=== PATIENT | male | born 1970 | race Hispanic/Latino ===

== ENCOUNTER 2019-07-05 18:55 | Emergency (ER) | payer SELFPAY ==
[2019-07-05] MEDS ORDERED: MORPHINE 4 MG/1 ML INJ IM ONE (20:13)
--- NOTE | 2019-07-05 20:13 | Emergency Department Report ---
HPI - General Chief Complaint: Fall Time Seen by Provider: 07/05/19 20:01 - HPI HPI: 49-year-old male presents to the emergency department via EMS from [place], where the patient is being treated for alcohol dependence, with complaint of chest wall pain and hematoma after slipping while getting out of the shower. He says that the toilets are located just across from the shower and it was wet and he slipped and fell forward with his chest hitting directly on the back of the toilet. He denies hitting his head or any loss of consciousness. Patient also has a past medical history of hypertension, peripheral neuropathy and nicotine dependence. He was given some ibuprofen for his symptoms prior to presentation without much relief. ED Past Medical Hx - Past Medical History Previous Medical History?: Yes Hx Hypertension: Yes Additional medical history: ETOH abuse - Surgical History Past Surgical History?: No - Social History Smoking Status: Unknown if ever smoked ED Review of Systems ROS: Stated complaint: CHEST CONTUSION Other details as noted in HPI Comment: All other systems reviewed and negative Constitutional: denies: chills, fever Eyes: denies: eye pain, vision change ENT: denies: ear pain, throat pain Respiratory: denies: cough, shortness of breath Cardiovascular: chest pain. denies: palpitations Gastrointestinal: denies: abdominal pain, vomiting Genitourinary: denies: dysuria, discharge Musculoskeletal: denies: back pain, arthralgia Skin: change in color (redness and ecchymoses to the superior chest wall). denies: rash Physical Exam - Physical Exam Vital Signs: Vital Signs 07/05/19 19:37 Temperature 98.3 F Pulse Rate 69 Respiratory 18 Rate Blood Pressure 150/90 O2 Sat by Pulse 95 Oximetry Physical Exam: GENERAL: The patient is well-developed well-nourished. HENT: Normocephalic. Atraumatic. Patient has moist mucous membranes. EYES: Extraocular motions are intact. NECK: Supple. Trachea is midline. CHEST/LUNGS: Clear to auscultation. There is no respiratory distress noted. There is some non-expanding swelling with erythema and ecchymosis to the upper midsternal chest wall. There is tenderness to palpation over this region. No crepitus. HEART/CARDIOVASCULAR: Regular. There is no tachycardia. There is no murmur. ABDOMEN: Abdomen is soft, nontender. Patient has normal bowel sounds. There is no abdominal distention. SKIN: Skin is warm and dry. There is some non-expanding swelling with erythema and ecchymosis to the upper midsternal chest wall. NEURO: The patient is awake, alert, and oriented. The patient is cooperative. The patient has no focal neurologic deficits. Normal speech. MUSCULOSKELETAL: There is no tenderness or deformity. ED Course Vital Signs 07/05/19 19:37 Temperature 98.3 F Pulse Rate 69 Respiratory 18 Rate Blood Pressure 150/90 O2 Sat by Pulse 95 Oximetry ED Medical Decision Making - Lab Data Result diagrams: 07/05/19 20:10 07/05/19 20:10 - Radiology Data Radiology results: report reviewed, image reviewed interpreted by me: Chest x-ray does not show any acute process. There are no pleural effusions, obvious pneumonia and there is no pneumothorax. CT chest w con INDICATION / CLINICAL INFORMATION: MAIN: Fall, Chest injury 100CC OF OMNIPAQUE 300 BOLUS GIVEN . TECHNIQUE: Axial CT imaging of chest was obtained with IV contrast. Coronal and sagittal reformatted imaging obtained and reviewed. All CT scans at this location are performed using CT dose reduction for ALARA by means of automated exposure control. COMPARISON: Chest radiograph 07/05/2019 FINDINGS: CT chest with contrast demonstrates normal appearance of the mediastinum. No evidence for mediastinal hematoma. Thoracic aorta is intact. No mediastinal or hilar adenopathy. Heart size is normal. No pericardial effusion. Both lungs are well-expanded and are clear. No evidence of pulmonary mass, parenchymal disease, or pleural effusion. Visualized portions of the upper abdomen do not demonstrate any significant acute abnormality. There is a focus of benign calcification in the right hepatic lobe, unlikely to be clinically significant. There is a very small simple cyst in the upper pole the left kidney. No free fluid or free air is seen in the upper abdomen. Review of osseous structures does not demonstrate any fracture of the visualized thoracic spine or sternum. No rib fractures identified. Spondylitic change noted in the spine. IMPRESSION: 1. Negative chest CT. No evidence for acute traumatic injury or other significant abnormality. - Medical Decision Making This patient presents to the emergency department with some midsternal upper chest wall pain, as well as what appears to be a contusion and hematoma, after he slipped getting out of the shower at his psychiatric facility and hit his chest on the toilet. He denies hitting his head or any loss of consciousness. Labs have been unremarkable including a negative troponin. Both chest x-ray and then CT of the chest with IV contrast did not show any rib fractures, sternal fracture, pneumothorax, or any other acute process. Vital signs stable throughout his ED course. The patient appears safe for discharge and medically cleared to return to his psychiatric facility. He has been instructed to follow-up with primary care when able to do so, and return to the ER with any worsening of his symptoms or any acute distress. - Differential Diagnosis Sternal fracture, rib fracture, chest wall contusion, hematoma Critical Care Time: No Critical care attestation.: If time is entered above; I have spent that time in minutes in the direct care of this critically ill patient, excluding procedure time. ED Disposition Clinical Impression: Chest wall contusion Qualifiers: Encounter type: initial encounter Laterality: unspecified laterality Qualified Code(s): S20.219A - Contusion of unspecified front wall of thorax, initial encounter Chest wall hematoma Qualifiers: Encounter type: initial encounter Laterality: unspecified laterality Qualified Code(s): S20.219A - Contusion of unspecified front wall of thorax, initial encounter Disposition: DC/TX-65 PSY HOSP/PSY UNIT Is pt being admited?: No Condition: Stable Instructions: Costochondritis (ED), Contusion in Adults (ED), Noncardiac Chest Pain (ED) Additional Instructions: Follow-up with a primary care physician as soon as you are able to do so. Return to the emergency department with any worsening of your symptoms or any acute distress. Referrals: PCP, Your [Other] - 2-3 Days [facility] [Outside] - 2-3 Days Time of Disposition: 23:10
[2019-07-05] MEDS ORDERED: ONDANSETRON 4 MG/2 ML INJ ONE (20:33)
[2019-07-05] MEDS ORDERED: ONDANSETRON 4 MG/2 ML INJ IV ONE (20:43)
[2019-07-05 20:56] LABS: Basophils # (Auto) 0.1 K/mm3 (0.0-0.1); Basophils % (Auto) 1.2 % (0.0-1.8); Eosinophils % (Auto) 0.4 % (0.0-4.3); Hematocrit 39.5 % (35.5-45.6); Hemoglobin 13.5 gm/dl (11.8-15.2); Lymphocytes # (Auto) 2.3 K/mm3 (1.2-5.4); Lymphocytes % (Auto) 19.1 % (13.4-35.0); Mean Corpuscular HGB Conc 34 % (32-34); Mean Corpuscular Volume 95 fl (84-94); Monocytes # (Auto) 0.7 K/mm3 (0.0-0.8); Monocytes % (Auto) 5.7 % (0.0-7.3); Platelet Count 361 K/mm3 (140-440); Red Blood Count 4.14 M/mm3 (3.65-5.03); Red Cell Distribution Width 13.6 % (13.2-15.2)
[2019-07-05 21:03] LABS: BUN/Creatinine Ratio 21; Blood Urea Nitrogen 17 mg/dL (9-20); Calcium 9.3 mg/dL (8.4-10.2); Hemolysis Index 5
[2019-07-05] MEDS ORDERED: diphenhydrAMINE 50 MG/ML VIAL IV ONE (21:48)
--- NOTE | 2019-07-05 22:05 | XRay Report ---
CHEST 1 VIEW 9:34 PM INDICATION / CLINICAL INFORMATION: Fall with chest wall pain.. COMPARISON: None available. FINDINGS: SUPPORT DEVICES: None. HEART / MEDIASTINUM: The heart size and pulmonary vasculature are normal. The aorta is normal in alex berta. LUNGS / PLEURA: No significant pulmonary or pleural abnormality. No pneumothorax. ADDITIONAL FINDINGS: I do not identify a rib fracture. IMPRESSION: No acute findings. Signer Name: Easton Champion MD Signed: 07/05/2019 10:01 PM Workstation Name: [id number]
[2019-07-05] MEDS ORDERED: ACETAMINOPHEN 325 MG TAB PO ONE (22:10)
--- NOTE | 2019-07-05 22:58 | Cat Scan Report ---
CT chest w con INDICATION / CLINICAL INFORMATION: MAIN: Fall, Chest injury 100CC OF OMNIPAQUE 300 BOLUS GIVEN . TECHNIQUE: Axial CT imaging of chest was obtained with IV contrast. Coronal and sagittal reformatted imaging obt ained and reviewed. All CT scans at this location are performed using CT dose reduction for ALARA by means of automated exposure control. COMPARISON: Chest radiograph 07/05/2019 FINDINGS: CT chest with contrast demonstrates normal appearance of the mediastinum. No evidence for mediastinal hematoma. Thoracic aorta is intact. No mediastinal or hilar adenopathy. Heart size is normal. No per icardial effusion. Both lungs are well-expanded and are clear. No evidence of pulmonary mass, parenchymal disease, or pl eural effusion. Visualized portions of the upper abdomen do not demonstrate any significant acute abnormality. There is a focus of benign calcification in the right hepatic lobe, unlikely to be clinically significant. There is a very small simple cyst in the upper pole the left kidney. No free fluid or free air is see n in the upper abdomen. Review of osseous structures does not demonstrate any fracture of the visualized thoracic spine or st ernum. No rib fractures identified. Spondylitic change noted in the spine. IMPRESSION: 1. Negative chest CT. No evidence for acute traumatic injury or other significant abnormality. Signer Name: Valentina Matos MD Signed: 07/05/2019 10:54 PM Workstation Name: [id number]
[2019-07-05] MEDS ORDERED: KETOROLAC 30 MG/1 ML INJ IV ONE (23:10)
[2019-07-05 23:12] VITALS: BP 153/93
== END 2019-07-05 23:28 ==
LOC: ED 18:55
DX: S20.219A Contusion of unspecified front wall of thorax, initial encounter (principal); I10 Essential (primary) hypertension; Z88.2 Allergy status to sulfonamides; W18.11XA Fall from or off toilet without subsequent striking against object, initial encounter; Y93.89 Activity, other specified; Y92.89 Other specified places as the place of occurrence of the external cause; Y99.8 Other external cause status
CPT/HCPCS: 36415; 71045; 71260; 80048; 84484; 85025; 96372; 96374; 96375; 99285; J1200; J1885; J2270; J2405

== ENCOUNTER 2019-07-20 16:42 | Emergency (ER) | payer SELFPAY ==
--- NOTE | 2019-07-20 16:47 | Emergency Department Report ---
Blank Doc - Documentation Documentation: This is a 49-year-old male that presents with SI. This initial assessment/diagnostic orders/clinical plan/treatment(s) is/are subject to change based on patient's health status, clinical progression and re- assessment by fellow clinical providers in the ED. Further treatment and workup at subsequent clinical providers discretion. Patient/guardians urged not to elope from the ED as their condition may be serious if not clinically assessed and managed. Initial orders include: 1- Patient sent to MAIN ED for further evaluation and treatment 2- commercial insulator was notified to have patient be brought back [facility]. 3- RN was notified to keep patient as close range and observation until room available 4- Patient presents with substantial risk of imminent harm to self, appears to be so unable to care for his/her own physical health and safety as to create an imminently life-endangering crisis, and has committed/expressed life endangering crisis to self. Due to this and other complaints, patient is put on psych hold.
[2019-07-20] MEDS ORDERED: LORazepam 2 MG/ML VIAL IV PRN (17:11)
--- NOTE | 2019-07-20 17:18 | Emergency Department Report ---
ED Psych HPI - General Chief Complaint: Psych Stated Complaint: SUICIDAL THOUGHTS Time Seen by Provider: 07/20/19 16:46 Source: patient Mode of arrival: Ambulatory - History of Present Illness Initial Comments: Patient is 49 years old male with history of schizophrenia and chronic alcoholism. Patient presented to the ER stating that he is depressed and he has been having thoughts of hurting himself. Patient tried to cut his wrist last night. Patient presented with multiple abrasion to the left wrist. Patient stated that he is hearing voices asking him to kill himself. Patient stated that he drinks alcohol daily and now he started having some shaking. He denies any seizure or visual hallucination. He also denies any homicidal ideation. Patient stated that last drink was this morning. MD Complaint: suicidal ideation, feels depressed Associated Psychiatric Symptoms: depression, suicidal ideation, racing thoughts, auditory hallucinations History of same: Yes Quality: constant Context: recent alcohol abuse Associated Symptoms: denies other symptoms Treatments Prior to Arrival: none If Self Harm: admits thoughts of, has plan, has acted on plan, self-inflicted trauma - Related Data Allergies Allergy/AdvReac Type Severity Reaction Status Date / Time cyclobenzaprine Allergy Hives Verified 07/20/19 16:43 [From Flexeril] ED Review of Systems ROS: Stated complaint: SUICIDAL THOUGHTS Other details as noted in HPI Comment: All other systems reviewed and negative Constitutional: denies: chills, fever Respiratory: denies: cough, shortness of breath, SOB with exertion, SOB at rest, wheezing Cardiovascular: denies: chest pain, palpitations Gastrointestinal: denies: abdominal pain, nausea, vomiting Musculoskeletal: denies: back pain Neurological: denies: headache, weakness, numbness, paresthesias, confusion Psychiatric: anxiety, depression, auditory hallucinations, suicidal thoughts. denies: visual hallucinations, homicidal thoughts ED Past Medical Hx - Past Medical History Hx Hypertension: Yes Hx Psychiatric Treatment: Yes (DEPRESSION) Additional medical history: ETOH abuse - Social History Smoking Status: Current Every Day Smoker Substance Use Type: Alcohol ED Physical Exam - General Limitations: No Limitations General appearance: alert, in no apparent distress, anxious - Head Head exam: Present: atraumatic, normocephalic, normal inspection - Eye Eye exam: Present: normal appearance, PERRL - ENT ENT exam: Present: normal exam, normal orophraynx, mucous membranes moist - Neck Neck exam: Present: normal inspection, full ROM. Absent: tenderness, meningismus, lymphadenopathy, thyromegaly - Respiratory Respiratory exam: Present: normal lung sounds bilaterally - Cardiovascular Cardiovascular Exam: Present: regular rate, normal rhythm, normal heart sounds - GI/Abdominal GI/Abdominal exam: Present: soft, normal bowel sounds. Absent: distended, tenderness, guarding, rebound, rigid, organomegaly, mass, pulsatile mass, hernia - Extremities Exam Extremities exam: Present: normal inspection, full ROM, normal capillary refill. Absent: pedal edema, calf tenderness - Back Exam Back exam: Present: normal inspection, full ROM. Absent: CVA tenderness (R), CVA tenderness (L), muscle spasm, paraspinal tenderness, vertebral tenderness - Neurological Exam Neurological exam: Present: alert, oriented X3, CN II-XII intact, normal gait, reflexes normal. Absent: motor sensory deficit - Psychiatric Psychiatric exam: Present: depressed, anxious, suicidal ideation. Absent: flat affect, manic, homicidal ideation - Skin Skin exam: Present: warm, dry, abrasion (Left wrist) ED Course Vital Signs 07/20/19 16:47 Temperature 98.1 F Pulse Rate 88 Respiratory 20 Rate Blood Pressure 159/101 O2 Sat by Pulse 98 Oximetry Critical care attestation.: If time is entered above; I have spent that time in minutes in the direct care of this critically ill patient, excluding procedure time. ED Disposition Condition: Stable Referrals: PRIMARY CARE, [Primary Care Provider] - 3-5 Days
[2019-07-20 17:29] LABS: Bilirubin,Urine NEG (Negative); Blood,Urine NEG (Negative); Color,Urine Colorless (Yellow); Protein,Urine <15 mg/dL mg/dL (Negative); Urobilinogen,Urine < 2.0 mg/dL (<2.0)
[2019-07-20 17:37] LABS: Amphetamine Screen,Urine PRESUMPTIVE NEGATIVE; Benzodiazepines Screen,Urine PRESUMPTIVE NEGATIVE; Cannabinoid Screen,Urine PRESUMPTIVE NEGATIVE; Cocaine Screen,Urine PRESUMPTIVE NEGATIVE; Methadone Screen,Urine PRESUMPTIVE NEGATIVE; Opiate Screen,Urine PRESUMPTIVE NEGATIVE
[2019-07-20 18:02] LABS: Basophils # (Auto) 0.1 K/mm3 (0.0-0.1); Basophils % (Auto) 1.5 % (0.0-1.8); Eosinophils # (Auto) 0.1 K/mm3 (0.0-0.4); Eosinophils % (Auto) 1.6 % (0.0-4.3); Hemoglobin 13.2 gm/dl (11.8-15.2); Lymphocytes # (Auto) 1.8 K/mm3 (1.2-5.4); Lymphocytes % (Auto) 24.8 % (13.4-35.0); Mean Corpuscular HGB Conc 34 % (32-34); Mean Corpuscular Volume 95 fl (84-94); Monocytes # (Auto) 0.4 K/mm3 (0.0-0.8); Monocytes % (Auto) 5.1 % (0.0-7.3); Platelet Count 312 K/mm3 (140-440); Red Blood Count 4.09 M/mm3 (3.65-5.03); Red Cell Distribution Width 13.7 % (13.2-15.2)
[2019-07-20 18:09] LABS: BUN/Creatinine Ratio 17; Blood Urea Nitrogen 15 mg/dL (9-20); Calcium 8.9 mg/dL (8.4-10.2); Hemolysis Index 12
[2019-07-20 18:13] LABS: Alanine Aminotransferase 26 units/L (7-56)
[2019-07-20 18:15] LABS: Bilirubin,Direct < 0.2 mg/dL (0-0.2)
[2019-07-20] MEDS: LORazepam 2 MG/ML VIAL IV PRN (18:54)
[2019-07-21] MEDS: LORazepam 2 MG/ML VIAL IV PRN ×5 (02:21→16:02)
[2019-07-21] MEDS ORDERED: ACETAMINOPHEN 325 MG TAB PO ONE (07:35)
[2019-07-21] MEDS ORDERED: WATER FOR INJ Sterile (PF) 10 ML ONE (12:56)
[2019-07-21] MEDS: ZIPRASIDONE MESYLATE 20 MG VIAL IM ONE ×2 (13:01→13:09)
[2019-07-21] MEDS ORDERED: traZODone 50 MG TAB PO PRN (14:42)
--- NOTE | 2019-07-21 14:46 | Consultation ---
History of Present Illness - Reason for Consult Consult date: 07/21/19 Reason for consult: Psych eval Requesting physician: TOSIN ESPITIA - Chief Complaint Chief complaint: Hearing voices, depressed and suicidal - History of Present Psychiatric Illness Patient is a 49yo single unemployed homeless male with history of Alcohol use disorder and Bipolar disorder. He presents with depression, auditory alicia lucinations and suicidal thoughts. In my interview with the patient he reports that he drinks daily- 18 pack of beer or a fifth of alcohol, he is restless and very anxious at this time. He also reports feeling depressed and suicidal. He is hearing voices telling him to kill himself. In the past he had alcohol withdrawal seizures. Patient denies panic attacks, recurrent nightmares or flashbacks. Patient denies symptoms suggestive of OCD or PTSD. Patient denies paranoia, thought interference and no features suggestive of hypomania or dary. He completely denies homicidal thoughts. PAST PSYCHIATRIC HISTORY: Diagnoses: Bipolar disorder and Alcohol use disorder Suicide attempts or Self-harm behavior: yes Prior psychiatric hospitalizations: yes Substance Abuse history: Alcohol Previous psychiatric medications tried: Celexa Outpatient treatment: No Family Psychiatric History None reported or documented SOCIAL HISTORY Marital Status: Single Living Arrangements: Homeless, lives in the [facility] Employment Status: unemployed Access to guns/weapons: Patient denies Education: 2nd grade History of Abuse: Patient denies Legal History: Patient denies ROS: Constitutional: Negative for weight loss ENT: Negative for stridor Respiratory: Negative for cough or hemoptysis All other systems reviewed and are negative MENTAL STATUS General Appearance and Behavior: age appropriate, good eye contact, cooperative with questioning and polite Cooperation: Cooperative Psychomotor Behavior: within normal limits Mood: Depressed Affect and affective range: Congruent with stated mood Thought Process: Fluent/Logical and Goal-directed Thought Content: Within reality Speech: Normal volume and Regular rate and rhythm Intellectual Functioning Average Suicidal Ideation: Yes Homicidal Ideation: Denies HI Impulse Control: intact Insight and Judgment: normal insight and judgment Memory: Normal Attention: Normal Orientation: alert and oriented Diagnoses: Bipolar depression with psychosis Alcohol use disorder RECOMMENDATIONS MEDICATIONS: Continue CIWA, Librium and Olanzapine added. Risks, benefits and alternatives of medications discussed with the patient, questions answered and consent obtained from patient. PSYCHOTHERAPY: Supportive psychotherapy provided MEDICAL: Per primary team DELIRIUM PRECAUTIONS: Please re-orient patient frequently, keep lights on during the day, and minimize opiates as these medications could worsen patient's confusion. 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 Please contact with any questions and/or concerns. Medications and Allergies Allergies Allergy/AdvReac Type Severity Reaction Status Date / Time cyclobenzaprine Allergy Hives Verified 07/21/19 13:13 [From Flexeril] Home Medications Medication Instructions Recorded Confirmed Last Taken Type Citalopram Hydrobromide [celeXA] 20 mg PO DAILY 07/20/19 07/20/19 07/19/19 History 20 mg Gabapentin 300 mg PO TID 07/20/19 07/20/19 07/17/19 History 300 mg amLODIPine [Norvasc] 10 mg PO DAILY 07/20/19 07/20/19 07/19/19 History 10 mg Active Meds: Active Medications Lorazepam (Ativan) 2 mg IV Q1HR PRN PRN Reason: CIWA-Ar 8-15 Last Admin: 07/21/19 05:52 Dose: 2 mg Documented by: Lorazepam (Ativan) 2 mg PO Q1HR PRN PRN Reason: CIWA-Ar 8-15 Lorazepam (Ativan) 4 mg IV Q1HR PRN PRN Reason: CIWA-Ar 16-25 Last Admin: 07/21/19 11:39 Dose: 4 mg Documented by: Lorazepam (Ativan) 4 mg IV Q15MIN PRN PRN Reason: CIWA-Ar >25 Mental Status Exam - Vital signs Last Vital Signs Temp 97.8 F 07/21/19 10:51 Pulse 73 07/21/19 11:00 Resp 32 H 07/21/19 11:00 BP 148/90 07/21/19 11:00 Pulse Ox 97 07/21/19 11:00 Results Result Diagrams: 07/20/19 17:33 07/20/19 17:33 Abnormal lab results 07/20/19 07/20/19 07/20/19 Range/Units 17:33 17:33 17:33 MCV 95 H (84-94) fl Salicylates < 0.3 L (2.8-20.0) mg/dL Acetaminophen < 5.0 L (10.0-30.0) ug/mL All other labs normal.
[2019-07-21] MEDS ORDERED: chlordiazePOXIDE 25 MG CAP PO SCH (15:00)
[2019-07-21] MEDS: amLODIPine 10 MG TAB PO SCH (15:07)
[2019-07-21] MEDS: THIAMINE 100 MG TAB PO SCH (15:07)
[2019-07-21] MEDS: CITALOPRAM 20 MG TAB PO SCH (15:07)
[2019-07-21] MEDS: GABAPENTIN 300 MG CAP PO SCH (21:28)
[2019-07-22] MEDS: GABAPENTIN 300 MG CAP PO SCH ×3 (08:05→23:08)
[2019-07-22] MEDS: amLODIPine 10 MG TAB PO SCH (10:13)
[2019-07-22] MEDS: THIAMINE 100 MG TAB PO SCH (10:16)
[2019-07-22] MEDS: CITALOPRAM 20 MG TAB PO SCH (10:17)
[2019-07-22] MEDS: LORazepam 2 MG/ML VIAL IV PRN ×2 (11:42→16:20)
--- NOTE | 2019-07-22 11:55 | Progress Note ---
Subjective - Reason for Consult Consult date: 07/22/19 Reason for consult: Psych follow up - Chief Complaint Chief complaint: Hearing voices, depressed and suicidal SUBJECTIVE: Patient continues to report hearing voices, feeling depressed and suicidal. He slept better last night. He is compliant with meds and denies side effects. ROS: Constitutional: Negative for weight loss ENT: Negative for stridor Respiratory: Negative for cough or hemoptysis All other systems reviewed and are negative MENTAL STATUS General Appearance and Behavior: age appropriate, good eye contact, cooperative with questioning and polite Cooperation: Cooperative Psychomotor Behavior: within normal limits Mood: Depressed Affect and affective range: Congruent with stated mood Thought Process: Fluent/Logical and Goal-directed Thought Content: Within reality Speech: Normal volume and Regular rate and rhythm Intellectual Functioning Average Suicidal Ideation: Yes Homicidal Ideation: Denies HI Impulse Control: intact Insight and Judgment: normal insight and judgment Memory: Normal Attention: Normal Orientation: alert and oriented Diagnoses: Bipolar depression with psychosis Alcohol use disorder RECOMMENDATIONS MEDICATIONS: Continue current meds Risks, benefits and alternatives of medications discussed with the patient, questions answered and consent obtained from patient. PSYCHOTHERAPY: Supportive psychotherapy provided MEDICAL: Per primary team DELIRIUM PRECAUTIONS: Please re-orient patient frequently, keep lights on during the day, and minimize opiates as these medications could worsen patient's confusion. 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 Please contact with any questions and/or concerns. Mental Status Exam - Vital signs Last Vital Signs Temp 97.5 F L 07/22/19 08:31 Pulse 68 07/22/19 10:13 Resp 14 07/22/19 08:31 BP 150/92 07/22/19 10:13 Pulse Ox 95 07/22/19 08:31
[2019-07-22] MEDS: LORazepam 2 MG TAB PO PRN (23:10)
[2019-07-23] MEDS: LORazepam 2 MG TAB PO PRN ×3 (06:33→12:01)
[2019-07-23] MEDS: GABAPENTIN 300 MG CAP PO SCH ×3 (09:49→20:24)
[2019-07-23] MEDS: CITALOPRAM 20 MG TAB PO SCH (09:50)
[2019-07-23] MEDS: amLODIPine 10 MG TAB PO SCH (09:50)
--- NOTE | 2019-07-23 11:47 | Progress Note ---
Subjective - Reason for Consult Consult date: 07/23/19 Reason for consult: Psych follow up - Chief Complaint Chief complaint: Hearing voices, depressed and suicidal SUBJECTIVE: Patient continues to report hearing voices, feeling depressed and suicidal. He slept good last night. He is compliant with meds and denies side effects. ROS: Constitutional: Negative for weight loss ENT: Negative for stridor Respiratory: Negative for cough or hemoptysis All other systems reviewed and are negative MENTAL STATUS General Appearance and Behavior: age appropriate, good eye contact, cooperative with questioning and polite Cooperation: Cooperative Psychomotor Behavior: within normal limits Mood: Depressed Affect and affective range: Congruent with stated mood Thought Process: Fluent/Logical and Goal-directed Thought Content: Within reality Speech: Normal volume and Regular rate and rhythm Intellectual Functioning Average Suicidal Ideation: Yes Homicidal Ideation: Denies HI Impulse Control: intact Insight and Judgment: normal insight and judgment Memory: Normal Attention: Normal Orientation: alert and oriented Diagnoses: Bipolar depression with psychosis Alcohol use disorder RECOMMENDATIONS MEDICATIONS: Continue current meds Risks, benefits and alternatives of medications discussed with the patient, questions answered and consent obtained from patient. PSYCHOTHERAPY: Supportive psychotherapy provided MEDICAL: Per primary team DELIRIUM PRECAUTIONS: Please re-orient patient frequently, keep lights on during the day, and minimize opiates as these medications could worsen patient's confusion. 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 Please contact with any questions and/or concerns. Mental Status Exam - Vital signs Last Vital Signs Temp 98.2 F 07/23/19 08:07 Pulse 74 07/23/19 08:07 Resp 18 07/23/19 08:07 BP 133/96 07/23/19 08:07 Pulse Ox 96 07/23/19 08:07
[2019-07-23] MEDS: THIAMINE 100 MG TAB PO SCH (12:01)
[2019-07-24] MEDS: GABAPENTIN 300 MG CAP PO SCH (09:04)
[2019-07-24] MEDS: CITALOPRAM 20 MG TAB PO SCH (09:42)
[2019-07-24] MEDS: THIAMINE 100 MG TAB PO SCH (09:42)
[2019-07-24] MEDS: LORazepam 2 MG TAB PO PRN ×2 (09:42→13:10)
[2019-07-24] MEDS: amLODIPine 10 MG TAB PO SCH (09:44)
--- NOTE | 2019-07-24 11:10 | Progress Note ---
Subjective - Reason for Consult Consult date: 07/24/19 Reason for consult: Psych follow up - Chief Complaint Chief complaint: I am ok SUBJECTIVE: Patient reports feeling ok this morning. He denies suicidal or homicidal thoughts. He feels safe being discharged today. He requests for prescription of Ativan and Librium. Appetite is good. He slept good last night. He is compliant with meds and denies side effects. ROS: Constitutional: Negative for weight loss ENT: Negative for stridor Respiratory: Negative for cough or hemoptysis All other systems reviewed and are negative MENTAL STATUS General Appearance and Behavior: age appropriate, good eye contact, cooperative with questioning and polite Cooperation: Cooperative Psychomotor Behavior: within normal limits Mood: OK Affect and affective range: Congruent with stated mood Thought Process: Fluent/Logical and Goal-directed Thought Content: Within reality Speech: Normal volume and Regular rate and rhythm Intellectual Functioning Average Suicidal Ideation: Denies SI Homicidal Ideation: Denies HI Impulse Control: intact Insight and Judgment: normal insight and judgment Memory: Normal Attention: Normal Orientation: alert and oriented Diagnoses: Bipolar depression with psychosis Alcohol use disorder RECOMMENDATIONS MEDICATIONS: Continue current meds Risks, benefits and alternatives of medications discussed with the patient, questions answered and consent obtained from patient. PSYCHOTHERAPY: Supportive psychotherapy provided MEDICAL: Per primary team PACKING ATTENDANT: N/A DISPOSITION: No indication for acute inpatient psychiatric hospitalization. LEGAL STATUS: 1013 rescinded FOLLOW-UP: Will sign off The patient agreed on the treatment plan, understood the risk, benefit, alternative treatment, potential consequence of no treatment, and gave informed consent. Please contact with any questions and/or concerns. Mental Status Exam - Vital signs Last Vital Signs Temp 97.7 F 07/24/19 09:11 Pulse 74 07/24/19 09:11 Resp 18 07/24/19 09:11 BP 159/101 07/24/19 09:11 Pulse Ox 94 07/24/19 09:11
[2019-07-24 13:46] VITALS: BP 158/101
== END 2019-07-24 14:35 | disposition home or self-care (01) ==
LOC: ED 16:42
DX: F32.9 Major depressive disorder, single episode, unspecified (principal); I10 Essential (primary) hypertension; Z79.899 Other long term (current) drug therapy
CPT/HCPCS: 36415; 80048; 80076; 80307; 81001; 85025; 96374; 96376; 99284; J2060; J3486; 80320; G0480; Q0177

== ENCOUNTER 2019-07-24 18:35 | Emergency (ER) | payer SELFPAY ==
--- NOTE | 2019-07-24 19:25 | Event Note ---
ED Screening Note Date of service: 07/24/19 Time: 19:24 ED Screening Note: This initial assessment/diagnostic orders/clinical plan/treatment(s) is/are subject to change based on patients health status, clinical progression and re- assessment by fellow clinical providers in the ED. Further treatment and workup at subsequent clinical providers discretion. Patient/guardian urged not to elope from the ED as their condition may be serious if not clinically assessed and managed. Initial orders include: 49yo male states that he dropped a heavy rock on his hand hours ago. He reports pain as a 10 of 10 and he has difficulty moving his hand.
--- NOTE | 2019-07-24 20:58 | XRay Report ---
Left hand-3 views INDICATION: crush injury. COMPARISON: None. IMPRESSION: Moderate soft tissue swelling about the hand with no acute fracture or malalignment. No significant DJD. Signer Name: Veto Fuller MD Signed: 07/24/2019 8:54 PM Workstation Name: [id number]
[2019-07-24] MEDS ORDERED: HYDROcodone/ACETAMINOPHEN 7.5-325MG TAB PO ONE (21:05)
[2019-07-24] MEDS ORDERED: TETANUS,DIPH,PERTUSS(ACELL) VACCINE 0.5 ML SYRINGE IM ONE (21:10)
--- NOTE | 2019-07-24 21:20 | Emergency Department Report ---
ED Upper Extremity Inj HPI - General Chief Complaint: Extremity Injury, Upper Stated Complaint: POSS BROKEN RT HAND Time Seen by Provider: 07/24/19 19:23 Source: patient Mode of arrival: Ambulatory Limitations: No Limitations - History of Present Illness Initial Comments: Patient is a 49-year-old male who presents emergency room with complaints of a left hand and wrist injury that occurred a couple hours prior to arrival. He states that he was trying to move a rock that weighed approximately 80 pounds and that it slipped and crushed his left hand and wrist. He has associated swelling and pain. He states that he does have a tingling sensation. He is able to move the fingers. He states that he has had a injury of his hand before approximately 5 years ago. He has a past medical history of hypertension. He states he has an allergy to Flexeril. He states he did not drive to the emergency department today. he states his last tetanus was 2 years ago. - Related Data Home Medications Medication Instructions Recorded Confirmed Last Taken amLODIPine 10 mg PO DAILY 07/20/19 07/20/19 07/19/19 10 mg Previous Rx's Medication Instructions Recorded Last Taken Type Citalopram Hydrobromide [celeXA] 20 mg PO DAILY #30 07/24/19 Unknown Rx Gabapentin 300 mg PO TID #90 cap 07/24/19 Unknown Rx HYDROcodone/APAP 5-325 [[place] 1 each PO Q6HR PRN #12 tablet 07/24/19 Unknown Rx 5/325] Ibuprofen [Motrin 600 MG tab] 600 mg PO Q8H PRN #14 tablet 07/24/19 Unknown Rx OLANzapine [ZyPREXA] 5 mg PO QHS #30 tablet 07/24/19 Unknown Rx Thiamine [Vitamin B-1] 100 mg PO QDAY #30 tablet 07/24/19 Unknown Rx hydrOXYzine PAMOATE [Vistaril] 50 mg PO Q6H PRN #60 capsule 07/24/19 Unknown Rx traZODone [Desyrel] 50 mg PO QHS PRN #30 tablet 07/24/19 Unknown Rx Allergies Allergy/AdvReac Type Severity Reaction Status Date / Time cyclobenzaprine Allergy Hives Verified 07/21/19 13:13 [From Flexeril] ED Review of Systems ROS: Stated complaint: POSS BROKEN RT HAND Other details as noted in HPI Comment: All other systems reviewed and negative ED Past Medical Hx - Past Medical History Previous Medical History?: Yes Hx Hypertension: Yes Hx Psychiatric Treatment: Yes (DEPRESSION) Additional medical history: ETOH abuse - Surgical History Past Surgical History?: Yes Additional Surgical History: Left hand surgery - Social History Smoking Status: Unknown if ever smoked - Medications Home Medications: Home Medications Medication Instructions Recorded Confirmed Last Taken Type amLODIPine 10 mg PO DAILY 07/20/19 07/20/19 07/19/19 History 10 mg Citalopram Hydrobromide [celeXA] 20 mg PO DAILY #30 07/24/19 Unknown Rx Gabapentin 300 mg PO TID #90 cap 07/24/19 Unknown Rx HYDROcodone/APAP 5-325 [[place] 1 each PO Q6HR PRN #12 tablet 07/24/19 Unknown Rx 5/325] Ibuprofen [Motrin 600 MG tab] 600 mg PO Q8H PRN #14 tablet 07/24/19 Unknown Rx OLANzapine [ZyPREXA] 5 mg PO QHS #30 tablet 07/24/19 Unknown Rx Thiamine [Vitamin B-1] 100 mg PO QDAY #30 tablet 07/24/19 Unknown Rx hydrOXYzine PAMOATE [Vistaril] 50 mg PO Q6H PRN #60 capsule 07/24/19 Unknown Rx traZODone [Desyrel] 50 mg PO QHS PRN #30 tablet 07/24/19 Unknown Rx ED Physical Exam - General Limitations: No Limitations General appearance: alert, in no apparent distress - Head Head exam: Present: atraumatic, normocephalic - Eye Eye exam: Present: normal appearance - ENT ENT exam: Present: mucous membranes moist - Extremities Exam Extremities exam: Present: other (moderate edema and ttp to the left hand and wrist, there is areas of ecchymosis present, skin is warm, small abrasion to the left hand, pt is able to move the fingers, decreased ROM of the left hand and wrist secondary to swelling and pain, 2+ distal pulses, sensation intact, brisk cap refill) - Neurological Exam Neurological exam: Present: alert, oriented X3 - Psychiatric Psychiatric exam: Present: normal affect, normal mood - Skin Skin exam: Present: warm, dry ED Course Vital Signs 07/24/19 07/24/19 18:42 22:05 Temperature 97.8 F Pulse Rate 98 H 86 Respiratory 18 17 Rate Blood Pressure 166/104 143/99 [Right] O2 Sat by Pulse 98 99 Oximetry ED Medical Decision Making - Radiology Data Radiology results: report reviewed Left hand-3 views INDICATION: crush injury. COMPARISON: None. IMPRESSION: Moderate soft tissue swelling about the hand with no acute fracture or malalignment. No significant DJD. Signer Name: Veto Fuller MD Signed: 07/24/2019 8:54 PM Workstation Name: [id number] Transcribed By: DONN Dictated By: Veto Fuller MD Electronically Authenticated By: Veto Fuller MD Signed Date/Time: 07/24/192053 DD/ 51 TD/TT: Left forearm-2 views INDICATION: crushed by rock. COMPARISON: None. IMPRESSION: The proximal aspect of the left forearm is not visualized on the frontal view, only on the lateral view. Mild soft tissue swelling about the forearm especially along the dorsal aspect in the mid to proximal region. No displaced fracture or malalignment. Signer Name: Veto Fuller MD Signed: 07/24/2019 9:42 PM Workstation Name: [id number] Transcribed By: DONN Dictated By: Veto Fuller MD Electronically Authenticated By: Veto Fuller MD Signed Date/Time: 07/24/192141 DD/ 29 TD/TT: - Medical Decision Making Patient is a 49-year-old male who presents emergency room with complaints of a left hand and wrist injury that occurred a couple hours prior to arrival. He states that he was trying to move a rock that weighed approximately 80 pounds and that it slipped and crushed his left hand and wrist. He has associated swelling and pain. He states that he does have a tingling sensation. He is able to move the fingers. He states that he has had a injury of his hand before approximately 5 years ago. He has a past medical history of hypertension. He states he has an allergy to Flexeril. He states he did not drive to the emergency department today. he states his last tetanus was 2 years ago. on exam: moderate edema and ttp to the left hand and wrist, there is areas of ecchymosis present, skin is warm, small abrasion to the left hand, pt is able to move the fingers, decreased ROM of the left hand and wrist secondary to swelling and pain, 2+ distal pulses, sensation intact, brisk cap refill. XR left hand: Moderate soft tissue swelling about the hand with no acute fracture or malalignment. No significant DJD. XR left forearm: The proximal aspect of the left forearm is not visualized on the frontal view, only on the lateral view. Mild soft tissue swelling about the forearm especially along the dorsal aspect inthe mid to proximal region. No displaced fracture or malalignment. Discussed exam findings and x-ray with Dr. Veto Cuevas, ER attending he states low concern for compartment syndrome given that it is in the hand, he has 2+ distal pulses, normal capillary refill, is able to move the fingers, he advised to plac e patient in a volar splint and to have patient elevate the arm as much as possible. Patient placed in a non tight volar splint by EMT and remained neurovascularly intact and discussed the importance of elevating the arm with patient and he verbalized understanding. Will have patient follow-up with orthopedic doctor. Patient given prescription for [place] and ibuprofen. advised pt Please take medication as prescribed. Please follow-up with orthopedic doctor. Return to the emergency room immediately for any new or worsening symptoms including but not limited to complete numbness, if the limb becomes cold, etc. Critical care attestation.: If time is entered above; I have spent that time in minutes in the direct care of this critically ill patient, excluding procedure time. ED Disposition Clinical Impression: Crush injury Injury of left hand Qualifiers: Encounter type: initial encounter Qualified Code(s): S69.92XA - Unspecified injury of left wrist, hand and finger(s), initial encounter Injury of left wrist Qualifiers: Encounter type: initial encounter Qualified Code(s): S69.92XA - Unspecified injury of left wrist, hand and finger(s), initial encounter Disposition: TO HOME OR SELFCARE Is pt being admited?: No Does the pt Need Aspirin: No Condition: Stable Instructions: RICE Therapy (ED) Additional Instructions: Please take medication as prescribed. Please follow-up with orthopedic doctor. Return to the emergency room immediately for any new or worsening symptoms including but not limited to complete numbness, if the limb becomes cold, etc. Prescriptions: Ibuprofen [Motrin 600 MG tab] 600 mg PO Q8H PRN #14 tablet PRN Reason: Pain, Moderate (4-6) HYDROcodone/APAP 5-325 [[place] 5/325] 1 each PO Q6HR PRN #12 tablet PRN Reason: Pain , Severe (7-10) Referrals: RINA LONDONO MD [Staff Physician] - 2-3 Days [facility] [Provider Group] - 2-[address] [facility] [Outside] - 2-3 Days [facility] [Outside] - 2-3 Days Time of Disposition: 21:57 Print Language: RUSSIAN
--- NOTE | 2019-07-24 21:46 | XRay Report ---
Left forearm-2 views INDICATION: crushed by rock. COMPARISON: None. IMPRESSION: The proximal aspect of the left forearm is not visualized on the frontal view, only on t he lateral view. Mild soft tissue swelling about the forearm especially along the dorsal aspect in t he mid to proximal region. No displaced fracture or malalignment. Signer Name: Veto Fuller MD Signed: 07/24/2019 9:42 PM Workstation Name: [id number]
[2019-07-24 22:31] VITALS: BP 143/99
== END 2019-07-24 22:05 | disposition home or self-care (01) ==
LOC: ED 18:35
DX: S69.92XA Unspecified injury of left wrist, hand and finger(s), initial encounter (principal); I10 Essential (primary) hypertension; F32.9 Major depressive disorder, single episode, unspecified; Z79.899 Other long term (current) drug therapy; Z88.8 Allergy status to other drugs, medicaments and biological substances; Z98.890 Other specified postprocedural states; X58.XXXA Exposure to other specified factors, initial encounter; Y93.89 Activity, other specified; Y92.89 Other specified places as the place of occurrence of the external cause; Y99.8 Other external cause status
CPT/HCPCS: 90715; 99283

== ENCOUNTER 2019-07-25 04:09 | Emergency (ER) | payer SELFPAY ==
[2019-07-25 05:01] LABS: Basophils # (Auto) 0.1 K/mm3 (0.0-0.1); Eosinophils # (Auto) 0.1 K/mm3 (0.0-0.4); Eosinophils % (Auto) 0.5 % (0.0-4.3); Hematocrit 41.5 % (35.5-45.6); Hemoglobin 14.1 gm/dl (11.8-15.2); Lymphocytes # (Auto) 1.5 K/mm3 (1.2-5.4); Lymphocytes % (Auto) 13.3 % (13.4-35.0); Mean Corpuscular HGB Conc 34 % (32-34); Mean Corpuscular Volume 95 fl (84-94); Platelet Count 352 K/mm3 (140-440); Red Blood Count 4.39 M/mm3 (3.65-5.03); Red Cell Distribution Width 13.6 % (13.2-15.2)
[2019-07-25 05:19] LABS: BUN/Creatinine Ratio 20; Blood Urea Nitrogen 18 mg/dL (9-20); Calcium 9.3 mg/dL (8.4-10.2); Hemolysis Index 11
--- NOTE | 2019-07-25 08:07 | Emergency Department Report ---
ED Psych HPI - General Chief Complaint: Psych Stated Complaint: L HAND SWELLING/BRUISING/PAIN Time Seen by Provider: 07/25/19 07:43 Source: patient Mode of arrival: Ambulatory Limitations: No Limitations - History of Present Illness Initial Comments: Mr. Baker is a 49-year-old male with history of hypertension, depression, alcohol abuse who presents with suicidal ideation. He is living in a tent. He feels like he would be better off . He plans to jump in front of a car. Patient was discharged yesterday after being evaluated for a left hand injury. A large rock rolled onto his hand. He removed the splint that was placed by my colleague earlier. He has bruising swelling to his hand. MD Complaint: suicidal ideation, feels depressed -: Gradual, week(s) (Several weeks) Associated Psychiatric Symptoms: depression History of same: Yes Quality: constant Improves With: none Worsens With: none Context: recent alcohol abuse, not taking psychiatric Associated Symptoms: other (Left hand bruising after rock rolled onto his hand) Treatments Prior to Arrival: none If Self Harm: has plan - Related Data Home Medications Medication Instructions Recorded Confirmed Last Taken Amlodipine Besylate [Norvasc] 10 mg PO QAM 07/25/19 07/25/19 Unknown Previous Rx's Medication Instructions Recorded Last Taken Type Citalopram Hydrobromide [celeXA] 20 mg PO DAILY #30 07/24/19 Unknown Rx Gabapentin 300 mg PO TID #90 cap 07/24/19 Unknown Rx HYDROcodone/APAP 5-325 [[place] 1 each PO Q6HR PRN #12 tablet 07/24/19 Unknown Rx 5/325] Ibuprofen [Motrin 600 MG tab] 600 mg PO Q8H PRN #14 tablet 07/24/19 Unknown Rx Allergies Allergy/AdvReac Type Severity Reaction Status Date / Time cyclobenzaprine Allergy Hives Verified 07/21/19 13:13 [From Flexeril] ED Review of Systems ROS: Stated complaint: L HAND SWELLING/BRUISING/PAIN Other details as noted in HPI Comment: All other systems reviewed and negative Constitutional: denies: fever, malaise Respiratory: denies: cough Cardiovascular: denies: chest pain ED Past Medical Hx - Past Medical History Previous Medical History?: Yes Hx Hypertension: Yes Hx Psychiatric Treatment: Yes (DEPRESSION) Additional medical history: ETOH abuse - Surgical History Past Surgical History?: Yes Additional Surgical History: Left hand surgery - Social History Smoking Status: Current Every Day Smoker Substance Use Type: Alcohol - Medications Home Medications: Home Medications Medication Instructions Recorded Confirmed Last Taken Type Citalopram Hydrobromide [celeXA] 20 mg PO DAILY #30 07/24/19 07/25/19 Unknown Rx Gabapentin 300 mg PO TID #90 cap 07/24/19 07/25/19 Unknown Rx HYDROcodone/APAP 5-325 [[place] 1 each PO Q6HR PRN #12 tablet 07/24/19 07/25/19 Unknown Rx 5/325] Ibuprofen [Motrin 600 MG tab] 600 mg PO Q8H PRN #14 tablet 07/24/19 07/25/19 Unknown Rx Amlodipine Besylate [Norvasc] 10 mg PO QAM 07/25/19 07/25/19 Unknown History ED Physical Exam - General Limitations: No Limitations General appearance: alert, in no apparent distress - Head Head exam: Present: atraumatic, normocephalic - Eye Eye exam: Present: normal appearance - ENT ENT exam: Present: mucous membranes moist - Neck Neck exam: Present: normal inspection, full ROM - Respiratory Respiratory exam: Present: normal lung sounds bilaterally. Absent: respiratory distress, wheezes, rales, rhonchi - Cardiovascular Cardiovascular Exam: Present: regular rate, normal rhythm, normal heart sounds. Absent: systolic murmur, diastolic murmur, rubs, gallop - GI/Abdominal GI/Abdominal exam: Present: soft, normal bowel sounds. Absent: distended, tenderness, guarding, rebound - Rectal Rectal exam: Present: deferred - Extremities Exam Extremities exam: Present: normal inspection - Expanded Upper Extremity Exam Left Elbow exam: Present: normal inspection, full ROM Forearm Wrist exam: Present: normal inspection, full ROM Hand Wrist exam: Present: tenderness, swelling, other (Left hand diffuse swelling diffuse edema full range of motion in all 5 digits) - Back Exam Back exam: Present: normal inspection - Neurological Exam Neurological exam: Present: alert, oriented X3 - Psychiatric Psychiatric exam: Present: normal affect, normal mood - Skin Skin exam: Present: warm, dry, intact, normal color. Absent: rash ED Course Vital Signs 07/25/19 07/25/19 07/25/19 04:13 07:25 09:13 Temperature 98.6 F 98.0 F Pulse Rate 96 H 68 Respiratory 18 20 18 Rate Blood Pressure 143/100 Blood Pressure 138/92 [Left] O2 Sat by Pulse 94 97 97 Oximetry 07/25/19 07/25/19 07/26/19 14:21 20:00 02:07 Temperature 97.9 F 97.6 F 97.5 F L Pulse Rate 77 58 L 52 L Respiratory 20 16 16 Rate Blood Pressure Blood Pressure 145/92 143/87 127/81 [Left] O2 Sat by Pulse 97 97 96 Oximetry 07/26/19 07/26/19 07/26/19 08:00 10:09 20:00 Temperature 98.3 F Pulse Rate 74 62 Respiratory 20 Rate Blood Pressure 135/95 Blood Pressure 135/91 122/78 [Left] O2 Sat by Pulse 96 Oximetry ED Medical Decision Making - Lab Data Result diagrams: 07/25/19 04:43 07/25/19 04:43 - Radiology Data Radiology results: report reviewed X-ray hand 3 views left: No acute fracture or subluxation no significant degenerative changes stable moderate soft tissue swelling - Medical Decision Making 1. Suicidal ideation with a plan to jump in front of a car. 1013 involuntary protocol instituted. Patient is medically clear for psychiatric care however reviewed the labs obtained. 2. Diffuse left hand swelling and ecchymosis. Patient has a history of minor crush injury. Neurovascularly intact. Repeat x-ray without fracture. Patient treated with brace and sling. Critical care attestation.: If time is entered above; I have spent that time in minutes in the direct care of this critically ill patient, excluding procedure time. ED Disposition Clinical Impression: Suicidal ideation Injury of left hand Qualifiers: Encounter type: initial encounter Qualified Code(s): S69.92XA - Unspecified injury of left wrist, hand and finger(s), initial encounter Injury of left wrist Qualifiers: Encounter type: initial encounter Qualified Code(s): S69.92XA - Unspecified injury of left wrist, hand and finger(s), initial encounter Disposition: [id number] PSY HOSP/PSY UNIT Is pt being admited?: No Does the pt Need Aspirin: No Condition: Stable Referrals: PRIMARY CARE, [Primary Care Provider] - 3-5 Days
--- NOTE | 2019-07-25 08:24 | XRay Report ---
XR hand 3+V LT INDICATION / CLINICAL INFORMATION: PT HAD A LARGE LANDSCAPING ROCK LAND ON HIS LEFT HAND AT WORK YESTERDAY; SWELLING AND BRUISING. COMPARISON: Left hand radiographs on 07/24/2019. FINDINGS: BONES/JOINT(S): No acute fracture or subluxation. No significant degenerative changes. SOFT TISSUES: Stable moderate soft tissue swelling in the hand. ADDITIONAL FINDINGS: None. Signer Name: Saeid Fish MD Signed: 07/25/2019 8:20 AM Workstation Name: [id number]
[2019-07-25 08:29] LABS: Bilirubin,Urine NEG (Negative); Blood,Urine NEG (Negative); Color,Urine Straw (Yellow); Protein,Urine <15 mg/dL mg/dL (Negative); Sperm,Urine FEW /HPF (NP); Urobilinogen,Urine < 2.0 mg/dL (<2.0)
[2019-07-25 08:35] LABS: Amphetamine Screen,Urine PRESUMPTIVE NEGATIVE; Benzodiazepines Screen,Urine PRESUMPTIVE NEGATIVE; Cannabinoid Screen,Urine PRESUMPTIVE NEGATIVE; Methadone Screen,Urine PRESUMPTIVE NEGATIVE; Opiate Screen,Urine PRESUMPTIVE NEGATIVE
[2019-07-25 10:22] LABS: Cocaine Screen,Urine PRESUMPTIVE POSITIVE
--- NOTE | 2019-07-25 13:52 | Consultation ---
History of Present Illness - Reason for Consult Consult date: 07/25/19 Reason for consult: Psych Consult - Chief Complaint Chief complaint: Suicidal - History of Present Psychiatric Illness Patient is a 49yo single unemployed homeless male with history of Alcohol use disorder and Bipolar disorder. He was discharged from the ED yesterday after spending 4 days and received detox treatment and medication adjustment for mercedes stabilization. He returns with c/o injury to his limb a few hours later; reports feeling suicidal because today is the anniversary of his mother's PAST PSYCHIATRIC HISTORY: Diagnoses: Bipolar disorder and Alcohol use disorder Suicide attempts or Self-harm behavior: yes Prior psychiatric hospitalizations: yes Substance Abuse history: Alcohol Previous psychiatric medications tried: Celexa Outpatient treatment: No Family Psychiatric History None reported or documented SOCIAL HISTORY Marital Status: Single Living Arrangements: Homeless, lives in the [facility] Employment Status: unemployed Access to guns/weapons: Patient denies Education: 2nd grade History of Abuse: Patient denies Legal History: Patient denies ROS: Constitutional: Negative for weight loss ENT: Negative for stridor Respiratory: Negative for cough or hemoptysis All other systems reviewed and are negative MENTAL STATUS General Appearance and Behavior: age appropriate, good eye contact, cooperative with questioning and polite Cooperation: Cooperative Psychomotor Behavior: within normal limits Mood: Depressed Affect and affective range: Congruent with stated mood Thought Process: Fluent/Logical and Goal-directed Thought Content: Within reality Speech: Normal volume and Regular rate and rhythm Intellectual Functioning Average Suicidal Ideation: Yes Homicidal Ideation: Denies HI Impulse Control: intact Insight and Judgment: normal insight and judgment Memory: Normal Attention: Normal Orientation: alert and oriented Diagnoses: Bipolar I disorder most recent episode depression with psychosis Alcohol use disorder RECOMMENDATIONS MEDICATIONS: Continue current medications Risks, benefits and alternatives of medications discussed with the patient, questions answered and consent obtained from patient. PSYCHOTHERAPY: Supportive psychotherapy provided MEDICAL: Per primary team DELIRIUM PRECAUTIONS: Please re-orient patient frequently, keep lights on during the day, and minimize opiates as these medications could worsen patient's confusion. FIRE TENDER: Yes DISPOSITION: Acute inpatient psychiatric hospitalization when medically stable LEGAL STATUS: 1013 FOLLOW-UP: Will follow The patient agreed on the treatment plan, understood the risk, benefit, alternative treatment, potential consequence of no treatment, and gave informed consent. Please contact with any questions and/or concerns. Medications and Allergies Allergies Allergy/AdvReac Type Severity Reaction Status Date / Time cyclobenzaprine Allergy Hives Verified 07/21/19 13:13 [[facility] Home Medications Medication Instructions Recorded Confirmed Last Taken Type Citalopram Hydrobromide [celeXA] 20 mg PO DAILY #30 07/24/19 07/25/19 Unknown Rx Gabapentin 300 mg PO TID #90 cap 07/24/19 07/25/19 Unknown Rx HYDROcodone/APAP 5-325 [[place] 1 each PO Q6HR PRN #12 tablet 07/24/19 07/25/19 Unknown Rx 5/325] Ibuprofen [Motrin 600 MG tab] 600 mg PO Q8H PRN #14 tablet 07/24/19 07/25/19 Unknown Rx Amlodipine Besylate [Norvasc] 10 mg PO QAM 07/25/19 07/25/19 Unknown History Mental Status Exam - Vital signs Last Vital Signs Temp 98.0 F 07/25/19 07:25 Pulse 68 07/25/19 07:25 Resp 18 07/25/19 09:13 BP 138/92 07/25/19 07:25 Pulse Ox 97 07/25/19 09:13 Results Result Diagrams: 07/25/19 04:43 07/25/19 04:43 Abnormal lab results 07/25/19 07/25/19 07/25/19 Range/Units 04:43 04:43 04:43 WBC 11.5 H (4.5-11.0) K/mm3 MCV 95 H (84-94) fl Lymph % (Auto) 13.3 L (13.4-35.0) % Burke % (Auto) 9.0 H (0.0-7.3) % [place] # 1.0 H (0.0-0.8) K/mm3 Seg Neutrophils % 76.2 H (40.0-70.0) % Seg Neutrophils # 8.8 H (1.8-7.7) K/mm3 Glucose 102 H (75-100) mg/dL Salicylates < 0.3 L (2.8-20.0) mg/dL All other labs normal.
[2019-07-25] MEDS: IBUPROFEN 600 MG TAB PO PRN (19:32)
[2019-07-25] MEDS: GABAPENTIN 300 MG CAP PO SCH (22:00)
[2019-07-26] MEDS: GABAPENTIN 300 MG CAP PO SCH ×3 (08:56→23:17)
[2019-07-26] MEDS: IBUPROFEN 600 MG TAB PO PRN (09:14)
[2019-07-26] MEDS ORDERED: amLODIPine 10 MG TAB PO SCH (10:00)
[2019-07-26] MEDS ORDERED: CITALOPRAM 20 MG TAB PO SCH (10:00)
--- NOTE | 2019-07-26 11:12 | Progress Note ---
Subjective - Reason for Consult Consult date: 07/26/19 Reason for consult: Psych follow up - Chief Complaint Chief complaint: hearing voices, suicidal and homicidal SUBJECTIVE Patient is now reporting hearing voices that tell him to kill himself and other s. He reports feeling depressed, suicidal and homicidal He requests to be prescribed Xanax or Ativan. ROS: Constitutional: Negative for weight loss ENT: Negative for stridor Respiratory: Negative for cough or hemoptysis All other systems reviewed and are negative MENTAL STATUS General Appearance and Behavior: age appropriate, good eye contact, cooperative with questioning and polite Cooperation: Cooperative Psychomotor Behavior: within normal limits Mood: Depressed Affect and affective range: Congruent with stated mood Thought Process: Fluent/Logical and Goal-directed Thought Content: AH Speech: Normal volume and Regular rate and rhythm Intellectual Functioning Average Suicidal Ideation: Yes Homicidal Ideation: Yes Impulse Control: intact Insight and Judgment: normal insight and judgment Memory: Normal Attention: Normal Orientation: alert and oriented Diagnoses: Bipolar I disorder most recent episode depression with psychosis Alcohol use disorder RECOMMENDATIONS MEDICATIONS: Start Depakote 500mg bid and Olanzapine 5mg bid Risks, benefits and alternatives of medications discussed with the patient, questions answered and consent obtained from patient. PSYCHOTHERAPY: Supportive psychotherapy provided MEDICAL: Per primary team DELIRIUM PRECAUTIONS: Please re-orient patient frequently, keep lights on during the day, and minimize opiates as these medications could worsen patient's confusion. PRINTING ASSISTANT: Yes DISPOSITION: Acute inpatient psychiatric hospitalization when medically stable LEGAL STATUS: 1013 FOLLOW-UP: Will follow Please contact with any questions and/or concerns. Mental Status Exam - Vital signs Last Vital Signs Temp 97.5 F L 07/26/19 02:07 Pulse 74 07/26/19 08:00 Resp 16 07/26/19 02:07 BP 135/95 07/26/19 10:09 Pulse Ox 96 07/26/19 02:07
[2019-07-26] MEDS ORDERED: ACETAMINOPHEN 325 MG TAB ONE (12:38)
[2019-07-26] MEDS: DIVALPROEX DR 250 MG TAB PO SCH ×2 (15:08→23:17)
[2019-07-26 21:47] VITALS: BP 122/78
[2019-07-26] MEDS ORDERED: traZODone 50 MG TAB PO SCH (22:00)
== END 2019-07-27 00:17 ==
LOC: ED 04:09
DX: S60.222A Contusion of left hand, initial encounter (principal); M25.542 Pain in joints of left hand; M25.442 Effusion, left hand; I10 Essential (primary) hypertension; F32.9 Major depressive disorder, single episode, unspecified; F17.200 Nicotine dependence, unspecified, uncomplicated; F10.10 Alcohol abuse, uncomplicated; Z88.8 Allergy status to other drugs, medicaments and biological substances; Z79.899 Other long term (current) drug therapy; Z98.890 Other specified postprocedural states; X58.XXXA Exposure to other specified factors, initial encounter; Y92.89 Other specified places as the place of occurrence of the external cause; Y93.89 Activity, other specified; Y99.8 Other external cause status
CPT/HCPCS: 36415; 80048; 80307; 80320; 81001; 85025; G0480